=== PATIENT | male | born 1960 | race African-American/Black ===

== ENCOUNTER 2020-11-21 11:40 | Emergency (ER) | payer OTHER, MEDICAID ==
[~2020-11-21] VITALS: Ht 170.2 cm; Wt 104.8 kg
[2020-11-21 11:44] VITALS: Ht 170.2 cm; Wt 104.8 kg
[2020-11-21 12:33] LABS: BASOPHIL % 0.8 % (0.2-1.5); PLATELET COUNT 242 x10^3mcL (152-348); RED CELL DISTRIBUTION WIDTH 13.2 % (12.1-16.2)
[2020-11-21 12:40] LABS: CALCIUM 9.2 mg/dL (8.5-10.1); CARBON DIOXIDE 27.4 mmol/L (21-32); CHLORIDE SERUM 106 mmol/L (98-107); GFR1 > 60 mL/min; GLUCOSE SERUM 104 mg/dL (74-106); POTASSIUM SERUM 3.9 mmol/L (3.5-5.1); SODIUM SERUM 143 mmol/L (136-145)
[2020-11-21 12:45] LABS: ALBUMIN 3.6 g/dL (3.4-5.0); ALKALINE PHOSPHATASE 99 U/L (46-116); ALT/SGPT 37 U/L (16-63); AST/SGOT 25 U/L (15-37); BILIRUBIN TOTAL 0.5 mg/dL (0.20-1.00); TOTAL PROTEIN, SERUM 7.2 g/dL (6.4-8.2)
[2020-11-21] MEDS ORDERED: HYDROCHLOROTHIA25 MG PO (13:25)
[2020-11-21] MEDS ORDERED: ULTRAM50 MG PO (13:25)
[2020-11-21 13:43] VITALS: BP 173/98
== END 2020-11-21 13:43 | disposition home or self-care (01) ==
LOC: ED 11:40
PROVIDERS: Emergency Medicine
DX: M77.8 Other enthesopathies, not elsewhere classified (principal); I10 Essential (primary) hypertension
CPT/HCPCS: 99406